=== PATIENT | female | born 1935 | race Caucasian/White ===

== ENCOUNTER → 2019-12-29 | Outpatient (CLI) | payer MEDICARE | END | disposition home or self-care (01) | LOC: LABWHC1 09:57 | PROVIDERS: ATTEND Internal Medicine | DX: U07.1 COVID-19 (principal); Z29.9 Encounter for prophylactic measures, unspecified ==

== ENCOUNTER 2022-11-03 11:44 | Emergency (ER) | payer MEDICARE ==
[2022-11-03] MEDS ORDERED: DIPH,PERTUS(ACELL)TETVAC-LF 0.5 ML VIAL IM ONE (11:59)
[2022-11-03] MEDS ORDERED: TOPICAL SKIN ADHESIVE 1 EACH AMP TOPICAL ONE (12:02)
[2022-11-03] MEDS ORDERED: GELATIN SPONGE,ABSORB (SMALL) 1 EACH SPONGE TOPICAL STA (12:04)
--- NOTE | 2022-11-03 12:07 | ED ---
General Adult HPI - General Chief complaint: Fall Stated complaint: Fall Time Seen by Provider: 11/03/22 11:50 Source: patient, EMS, RN notes reviewed Mode of arrival: EMS Limitations: no limitations - History of Present Illness Initial comments: Patient is a pleasant 87-year-old female presenting to the emergency department following a fall. Patient states she was walking into a building and fell down one step. Patient did strike her head. No loss consciousness. A knott states only mild discomfort. Unclear last tetanus immunization. Patient did have a fall last week. Patient is on eloquent secondary to history of atrial fibrillation. No neck or back pain. No chest pain or dyspnea. No abdominal pain. - Related Data Home Medications Medication Instructions Recorded Confirmed Cephalexin [Keflex] 500 mg PO DAILY 02/15/14 12/29/15 Simvastatin [Zocor] 20 mg PO DAILY 02/15/14 12/29/15 amLODIPine [Norvasc] 5 mg PO DAILY 02/15/14 12/29/15 Aspirin 325 mg PO DAILY 12/19/14 12/29/15 Acetaminophen/Diphenhydramine 2 tab PO HS 12/29/15 12/29/15 [Tylenol PM 500-25mg] Artificial Tears-Hypromellose 1 drop BOTH EYES QID PRN 12/29/15 12/29/15 [Artificial Tear Drops] Calcium Carbonate [Calcium] 600 mg PO DAILY 12/29/15 12/29/15 Vitamin E (Dl,Tocopheryl Acet) 2,000 unit PO DAILY 12/29/15 12/29/15 [Vitamin E] Previous Rx's Medication Instructions Recorded ALPRAZolam [Xanax] 0.25 mg PO TID PRN #20 tab 01/01/16 Furosemide [Lasix] 40 mg PO BID@0900,1600 #60 tab 01/01/16 Levofloxacin [Levaquin] 500 mg PO DAILY #5 tab 01/01/16 Levothyroxine Sodium [Synthroid] 50 mcg PO DAILY@0630 #30 tab 01/01/16 Pregabalin [Lyrica] 150 mg PO HS #20 capsule 01/01/16 Allergies Allergy/AdvReac Type Severity Reaction Status Date / Time No Known Allergies Allergy Verified 11/03/22 11:58 Review of Systems ROS Statement: Those systems with pertinent positive or pertinent negative responses have been documented in the HPI. ROS Other: All systems not noted in ROS Statement are negative. Constitutional: Denies: fever Eyes: Denies: eye pain ENT: Denies: ear pain Respiratory: Denies: cough, dyspnea Cardiovascular: Denies: chest pain Endocrine: Denies: fatigue Gastrointestinal: Denies: abdominal pain Genitourinary: Denies: dysuria Musculoskeletal: Reports: as per HPI. Denies: back pain Skin: Reports: as per HPI. Denies: rash Past Medical History Past Medical History: Eye Disorder, Hyperlipidemia, Hypertension, Myocardial Infarction (HI) Additional Past Medical History / Comment(s): cataracts. tinnitus, Last Myocardial Infarction Date:: 2008 History of Any Multi-Drug Resistant Organisms: None Reported Past Surgical History: Bladder Surgery, Coronary Bypass/CABG, Heart Catheterization, Hysterectomy, Joint Replacement, Tonsillectomy Additional Past Surgical History / Comment(s): triple bypass,. RT MAGGIE. RT TKA. , bladder suspension,. jena fundoplasty,. left eye surgery Past Anesthesia/Blood Transfusion Reactions: No Reported Reaction Past Psychological History: No Psychological Hx Reported Past Alcohol Use History: None Reported Past Drug Use History: None Reported - Past Family History Father Family Medical History: Cancer General Exam Limitations: no limitations General appearance: alert, in no apparent distress Head exam: Present: other (Soft tissue swelling left eyebrow) Eye exam: Present: normal appearance, PERRL. Absent: EOMI (Unable to move left eye laterally which patient states is chronic from muscle weakness and has seen specialists for this and plans for surgery) ENT exam: Present: normal oropharynx Neck exam: Present: normal inspection. Absent: tenderness Respiratory exam: Present: normal lung sounds bilaterally Cardiovascular Exam: Present: irregular rhythm GI/Abdominal exam: Present: soft. Absent: distended, tenderness Extremities exam: Present: tenderness (Tenderness and swelling left dorsal hand and wrist) Back exam: Present: normal inspection. Absent: tenderness Neurological exam: Present: alert, CN II-XII intact (Except difficulty with lateral movement of the left eye) Expanded Neurological exam: Present: protecting the airway Cranial nerves: EOM's Intact: Abnormal Left (With lateral movement) Sensory exam: Upper Extremity Light Touch: Normal, Lower Extremity Light Touch: Normal Motor strength exam: RUE: 5, LUE: 5, RLE: 5, LLE: 5 Eye Response: (4) open spontaneously Motor Response: (6) obeys commands Verbal Response: (5) oriented Psychiatric exam: Present: normal affect, normal mood Skin exam: Present: other (Skin tear left arm and left foot. Laceration right h and between third and fourth MCP) Course - Reevaluation(s) Reevaluation #1: 11/03/22 13:13 Call from radiologist with concern for intracranial hemorrhage. Patient will be transferred. Patient is on eliquis. Kcentra and TX a has been ordered. EKG Findings - EKG Results: EKG: interpreted by GILBERTOD, normal axis, normal QRS, normal ST/T EKG shows: atrial fibrillation Medical Decision Making - Medical Decision Making Was pt. sent in by a medical professional or institution (, PA, PURIFICATION SUPERVISOR, urgent care, hospital, or long term...) When possible be specific @ -No Did you speak to anyone other than the patient for history (EMS, parent, family, police, friend...)? What history was obtained from this source @ -Daughter helps confirm history later that patient has chronic muscle weakness left eye with difficulty with movement Did you review nursing and triage notes (agree or disagree)? Why? @ -I reviewed and agree with nursing and triage notes Were old charts reviewed (outside hosp., previous admission, EMS record, old EKG, old radiological studies, urgent care reports/EKG's, long term records)? Report findings @ -No old charts were reviewed Differential Diagnosis (chest pain, altered mental status, abdominal pain women, abdominal pain men, vaginal bleeding, weakness, fever, dyspnea, syncope, heada joann, dizziness, GI bleed, back pain, seizure, CVA, palpatations, mental health)? @ -not applicable EKG interpreted by me (3pts min.). @ -As above X-rays interpreted by me (1pt min.). @ -Chest x-ray shows no acute process. Pelvis x-ray shows probable old pubic rami fracture. Inferior. X-ray left hand wrist reveals no acute process CT interpreted by me (1pt min.). @ -None done U/S interpreted by me (1pt. min.). @ -None done What testing was considered but not performed or refused? (CT, X-rays, U/S, labs )? Why? @ -None What meds were considered but not given or refused? Why? @ -None Did you discuss the management of the patient with other professionals (professionals i.e. , PA, PURIFICATION SUPERVISOR, lab, RT, psych nurse, social secretary, professor of public administration, teacher, grant officer, rehabilitation case coordinator)? Give summary @ -Case discussed with Dr. Dixon at [facility], who will accept transfer. Was smoking cessation discussed for >3mins.? @ -No Was critical care preformed (if so, how long)? @ -33 minutes critical care time Were there social determinants of health that impacted care today? How? (Homelessness, low income, unemployed, alcoholism, drug addiction, transportation, low edu. Level, literacy, decrease access to med. care, correction, rehab)? @ -No Was there de-escalation of care discussed even if they declined (Discuss DNR or withdrawal of care, Hospice)? DNR status @ -No What co-morbidities impacted this encounter? (DM, HTN, Smoking, COPD, CAD, Cancer, CVA, ARF, Chemo, Hep., AIDS, mental health diagnosis, sleep apnea, morbid obesity)? @ -None Was patient admitted / discharged? Hospital course, mention meds given and route, prescriptions, significant lab abnormalities, going to OR and other pertinent info. @ -Patient has intracranial hemorrhage on anticoagulation secondary to A. fib. Patient provided kcentra and txa. Patient will be transferred to trauma center. Patient and family are updated. Undiagnosed new problem with uncertain prognosis? @ -No Drug Therapy requiring intensive monitoring for toxicity (Heparin, Nitro, Ins ulin, Cardizem)? @ -No Were any procedures done? @ -No Diagnosis/symptom? @ -Intracranial hemorrhage Acute, or Chronic, or Acute on Chronic? @ -Acute Uncomplicated (without systemic symptoms) or Complicated (systemic symptoms)? @ -Complicated with anticoagulation Side effects of treatment? @ -No Exacerbation, Progression, or Severe Exacerbation? @ -No Poses a threat to life or bodily function? How? (Chest pain, USA, HI, pneumonia, PE, COPD, DKA, ARF, appy, cholecystitis, CVA, Diverticulitis, Homicidal, Suicidal, threat to staff... and all critical care pts) @ -Threat to life and neurological function based off hemorrhage - Lab Data Result diagrams: 11/03/22 11:50 11/03/22 11:50 Lab Results 11/03/22 11/03/22 11/03/22 Range/Units 11:50 11:50 11:50 WBC 5.3 (3.8-10.6) k/uL RBC 4.05 (3.80-5.40) m/uL Hgb 12.1 (11.4-16.0) gm/dL Hct 37.3 (34.0-46.0) % MCV 92.0 (80.0-100.0) fL MCH 29.9 (25.0-35.0) pg MCHC 32.5 (31.0-37.0) g/dL RDW 13.6 (11.5-15.5) % Plt Count 204 (150-450) k/uL MPV 8.5 Neutrophils % 67 % Lymphocytes % 21 % Monocytes % 6 % Eosinophils % 2 % Basophils % 0 % Neutrophils # 3.5 (1.3-7.7) k/uL Lymphocytes # 1.1 (1.0-4.8) k/uL Monocytes # 0.3 (0-1.0) k/uL Eosinophils # 0.1 (0-0.7) k/uL Basophils # 0.0 (0-0.2) k/uL PT 10.2 (9.0-12.0) sec INR 1.0 (<1.2) APTT 22.5 (22.0-30.0) sec Sodium 140 (137-145) mmol/L Potassium 3.6 (3.5-5.1) mmol/L Chloride 106 (98-107) mmol/L Carbon Dioxide 29 (22-30) mmol/L Anion Gap 5 mmol/L BUN 22 H (7-17) mg/dL Creatinine 1.47 H (0.52-1.04) mg/dL Est GFR (CKD-EPI)AfAm 36 (>60 ml/min/1.73 sqM) Est GFR (CKD-EPI)NonAf 32 (>60 ml/min/1.73 sqM) Glucose 118 H (74-99) mg/dL Calcium 9.3 (8.4-10.2) mg/dL Total Bilirubin 0.5 (0.2-1.3) mg/dL AST 21 (14-36) U/L ALT 11 (4-34) U/L Alkaline Phosphatase 77 (38-126) U/L Total Protein 6.2 L (6.3-8.2) g/dL Albumin 3.8 (3.5-5.0) g/dL Urine Opiates Screen (NotDetected) Ur Oxycodone Screen (NotDetected) Urine Methadone Screen (NotDetected) Ur Propoxyphene Screen (NotDetected) Ur Barbiturates Screen (NotDetected) U Tricyclic Antidepress (NotDetected) Ur Phencyclidine Scrn (NotDetected) Ur Amphetamines Screen (NotDetected) U Methamphetamines Scrn (NotDetected) U Benzodiazepines Scrn (NotDetected) Urine Cocaine Screen (NotDetected) U Marijuana (THC) Screen (NotDetected) Serum Alcohol <10 mg/dL Blood Type Blood Type Confirm Blood Type Recheck Bld Type Recheck Status Antibody Screen Spec Expiration Date 11/03/22 11/03/22 11/03/22 Range/Units 11:50 12:00 13:45 WBC (3.8-10.6) k/uL RBC (3.80-5.40) m/uL Hgb (11.4-16.0) gm/dL Hct (34.0-46.0) % MCV (80.0-100.0) fL MCH (25.0-35.0) pg MCHC (31.0-37.0) g/dL RDW (11.5-15.5) % Plt Count (150-450) k/uL MPV Neutrophils % % Lymphocytes % % Monocytes % % Eosinophils % % Basophils % % Neutrophils # (1.3-7.7) k/uL Lymphocytes # (1.0-4.8) k/uL Monocytes # (0-1.0) k/uL Eosinophils # (0-0.7) k/uL Basophils # (0-0.2) k/uL PT (9.0-12.0) sec INR (<1.2) APTT (22.0-30.0) sec Sodium (137-145) mmol/L Potassium (3.5-5.1) mmol/L Chloride (98-107) mmol/L Carbon Dioxide (22-30) mmol/L Anion Gap mmol/L BUN (7-17) mg/dL Creatinine (0.52-1.04) mg/dL Est GFR (CKD-EPI)AfAm (>60 ml/min/1.73 sqM) Est GFR (CKD-EPI)NonAf (>60 ml/min/1.73 sqM) Glucose (74-99) mg/dL Calcium (8.4-10.2) mg/dL Total Bilirubin (0.2-1.3) mg/dL AST (14-36) U/L ALT (4-34) U/L Alkaline Phosphatase (38-126) U/L Total Protein (6.3-8.2) g/dL Albumin (3.5-5.0) g/dL Urine Opiates Screen Not Detected (NotDetected) Ur Oxycodone Screen Not Detected (NotDetected) Urine Methadone Screen Not Detected (NotDetected) Ur Propoxyphene Screen Not Detected (NotDetected) Ur Barbiturates Screen Not Detected (NotDetected) U Tricyclic Antidepress Not Detected (NotDetected) Ur Phencyclidine Scrn Not Detected (NotDetected) Ur Amphetamines Screen Not Detected (NotDetected) U Methamphetamines Scrn Not Detected (NotDetected) U Benzodiazepines Scrn Not Detected (NotDetected) Urine Cocaine Screen Not Detected (NotDetected) U Marijuana (THC) Screen Not Detected (NotDetected) Serum Alcohol mg/dL Blood Type O Positive Blood Type Confirm O Positive Blood Type Recheck No Previous Record Bld Type Recheck Status CABO Indicated Antibody Screen NEGATIVE Spec Expiration Date 11/06/2022 - 2349 Critical Care Time Critical Care Time: Yes Total Critical Care Time: 33 Disposition Clinical Impression: Intracranial hemorrhage Disposition: OTHER INSTITUTION NOT DEFINED Condition: Serious Is patient prescribed a controlled substance at d/c from ED?: No Referrals: Myron Zavala MD [Primary Care Provider] - 1-2 days Time of Disposition: 13:19 - Out of Hospital Transfer - Req. Specs Out of Hospital Transfer - Requested Specifics: Other Emergency Center
[2022-11-03 12:14] LABS: Basophils % (A) 0 %; Eosinophils # (A) 0.1 k/uL (0-0.7); Eosinophils % (A) 2 %; HCT 37.3 % (34.0-46.0); HGB 12.1 gm/dL (11.4-16.0); Lymphocytes # (A) 1.1 k/uL (1.0-4.8); Lymphocytes % (A) 21 %; MCH 29.9 pg (25.0-35.0); MCHC 32.5 g/dL (31.0-37.0); Mean Platelet Volume 8.5; Monocytes # (A) 0.3 k/uL (0-1.0); Monocytes % (A) 6 %; Neutrophils # (A) 3.5 k/uL (1.3-7.7); Neutrophils % (A) 67 %; Platelet Count 204 k/uL (150-450); RBC 4.05 m/uL (3.80-5.40); RDW 13.6 % (11.5-15.5); WBC 5.3 k/uL (3.8-10.6)
--- NOTE | 2022-11-03 12:16 | XR ---
EXAMINATION TYPE: XR pelvis AP view DATE OF EXAM: 11/03/2022 CLINICAL HISTORY: pain TECHNIQUE: Single view the pelvis is submitted. FINDINGS: There is sclerosis right inferior pubic ramus could reflect nonacute fracture. No definite acute displaced fracture seen at this time. Correlate clinically point tenderness. Total right hip ar throplasty is noted be in place. Joint spaces are well-preserved. SI joints appear symmetric. IMPRESSION: 1. No acute fracture or dislocation seen. Probable chronic fracture right inferior pubic ramus. ICD 10 NO FRACTURE, INITIAL EVALUATION
--- NOTE | 2022-11-03 12:17 | XR ---
EXAMINATION TYPE: XR chest 1V portable DATE OF EXAM: 11/03/2022 HISTORY: Shortness of breath. COMPARISON: 12/30/2015 TECHNIQUE: Single view of the chest is submitted. Patient rotation limits evaluation. FINDINGS: Demonstrated are scattered senescent parenchymal change. There is no evidence for focal infiltrate. The heart is stable. Hilar and mediastinal structures are within normal limits. Degenerative changes are seen of the dorsal spine. IMPRESSION: 1. Chronic changes without evidence for acute pulmonary disease.
[2022-11-03 12:22] LABS: Partial Thromboplastin Time 22.5 sec (22.0-30.0); Prothrombin Time 10.2 sec (9.0-12.0)
[2022-11-03 12:27] LABS: ALT 11 U/L (4-34); AST 21 U/L (14-36); African American GFR (CKD) 36 (>60 ml/min/1.73 sqM); Albumin 3.8 g/dL (3.5-5.0); Alcohol <10 mg/dL; Alkaline Phosphatase 77 U/L (38-126); Anion Gap 5 mmol/L; Blood Urea Nitrogen 22 mg/dL (7-17); Calcium 9.3 mg/dL (8.4-10.2); Carbon Dioxide 29 mmol/L (22-30); Chloride 106 mmol/L (98-107); Glucose 118 mg/dL (74-99); Non-African American GFR(CKD) 32 (>60 ml/min/1.73 sqM); Potassium 3.6 mmol/L (3.5-5.1); Sodium 140 mmol/L (137-145); Total Bilirubin 0.5 mg/dL (0.2-1.3); Total Protein 6.2 g/dL (6.3-8.2)
--- NOTE | 2022-11-03 12:33 | XR ---
EXAMINATION TYPE: XR hand complete LT DATE OF EXAM: 11/03/2022 CLINICAL HISTORY: pain TECHNIQUE: Frontal, lateral and oblique images of the left hand are obtained. COMPARISON: None. FINDINGS: There is no acute fracture/dislocation evident. The joint spaces appear within normal limi ts. Dorsal soft tissue swelling. Bony osteopenia. Limited evaluation of the proximal phalanx left thi rd digit given overlying ring. IMPRESSION: There is no acute fracture or dislocation. ICD 10 NO FRACTURE, INITIAL EVALUATION
--- NOTE | 2022-11-03 12:51 | CT ---
EXAMINATION TYPE: CT brain roxanne schwartz DATE OF EXAM: 11/03/2022 COMPARISON: None HISTORY: Trauma, fall CT DLP: 1502.[address] of the brain was performed. The ventricles, basal cisterns and sulci overlying the cerebral convexities demonstrate mild enlargem ent. There is a small focus of intraparenchymal contusive hemorrhage left frontal region axial image 33 se quence 2032, sagittal image 35 sequence 2034 and coronal image 04/07/2002 4. Small area of hemorrhage measures 5.7 mm. Additional focus of hyperintensity seen medial left frontal lobe axial image 36 and sagittal image 28 also measuring 5.4 mm. There is decreased attenuation about the periventricular white matter and deep white matter of both c erebral hemispheres, compatible with chronic small vessel ischemia. No mass effects are seen. If symptoms persist consider MRI. Osseous calvarium is intact. Right frontal scalp hematoma and left supraorbital scalp hematoma seen. IMPRESSION: 1. Two small foci of contusive hemorrhage suspected within the left frontal lobe. CT Cervical Spine: Unenhanced CT of the cervical spine was performed with bone and soft tissue window settings submitted . Coronal and sagittal reconstruction is obtained. There is normal alignment and prevertebral soft tissues. No evidence for acute cervical fracture . Scattered degenerative disc disease and spondylosis. Small bilateral pleural effusions with pulmonary venous congestion and scattered groundglass infiltrates.. IMPRESSION: 1. No acute fracture or dislocation. 2. Correlate for changes of congestive failure.
[2022-11-03] MEDS ORDERED: Kcentra PER PHARMACY 1 EACH MISC MISCELLANE PRN (13:03)
[2022-11-03] MEDS ORDERED: TRANEXAMIC 1,000 MG/100ML-NACL 1,000 MG in SALINE 1 100ML.BAG IV STA (13:05)
[2022-11-03] MEDS ORDERED: EMPTY BAG 1 BAG with HUMAN PROTHROMBIN COMPLX 2,000 UNIT IV ONE (13:15)
[2022-11-03 14:35] LABS: Amphetamine Screen,Urine Not Detected (NotDetected); Barbiturate Screen,Urine Not Detected (NotDetected); Benzodiazepines Screen,Urine Not Detected (NotDetected); Cocaine Screen,Urine Not Detected (NotDetected); Methadone Screen, Urine Not Detected (NotDetected); Opiate Screen,Urine Not Detected (NotDetected); Oxycodone Screen, Urine Not Detected (NotDetected); Phencyclidine Screen,Urine Not Detected (NotDetected); Tricyclic Antidepressant,Urine Not Detected (NotDetected); Urn Cannabinoid Scrn Not Detected (NotDetected)
[2022-11-03 21:55] VITALS: BP 163/98; PULSE 86; RESP 17; TEMP 98
== END 2022-11-03 15:30 | disposition other institution (70) ==
LOC: EC 11:44
DX: S00.03XA Contusion of scalp, initial encounter (principal); E78.5 Hyperlipidemia, unspecified; I10 Essential (primary) hypertension; I25.2 Old myocardial infarction; Z79.82 Long term (current) use of aspirin; Z79.899 Other long term (current) drug therapy; Z23 Encounter for immunization; W10.9XXA Fall (on) (from) unspecified stairs and steps, initial encounter; Y93.01 Activity, walking, marching and hiking
CPT/HCPCS: 36415; 93005; 86900; 86901; 80053; 85025; 85610; 85730; 86850; 80306; 72170; 73130; 71045; 72125; 70450; 90715; 99291; 90471; 96365; 96368; G0480; J7168; 80320

== ENCOUNTER 2022-12-15 10:24 | Emergency (ER) | payer MEDICARE ==
[2022-12-15 10:29] VITALS: RESP 18
[2022-12-15 10:50] LABS: Basophils % (A) 1 %; Eosinophils # (A) 0.2 k/uL (0-0.7); Eosinophils % (A) 3 %; HCT 40.4 % (34.0-46.0); Hypochromasia Slight; Lymphocytes # (A) 1.1 k/uL (1.0-4.8); Lymphocytes % (A) 20 %; MCH 29.8 pg (25.0-35.0); MCHC 32.1 g/dL (31.0-37.0); MCV 92.9 fL (80.0-100.0); Mean Platelet Volume 8.6; Monocytes # (A) 0.3 k/uL (0-1.0); Monocytes % (A) 6 %; Neutrophils # (A) 3.9 k/uL (1.3-7.7); Neutrophils % (A) 69 %; Platelet Count 231 k/uL (150-450); RBC 4.35 m/uL (3.80-5.40); RDW 13.9 % (11.5-15.5); WBC 5.7 k/uL (3.8-10.6)
[2022-12-15 11:05] LABS: ALT 11 U/L (4-34); AST 19 U/L (14-36); African American GFR (CKD) 37 (>60 ml/min/1.73 sqM); Albumin 4.1 g/dL (3.5-5.0); Alcohol <10 mg/dL; Alkaline Phosphatase 72 U/L (38-126); Anion Gap 10 mmol/L; Blood Urea Nitrogen 20 mg/dL (7-17); Calcium 9.6 mg/dL (8.4-10.2); Carbon Dioxide 28 mmol/L (22-30); Chloride 103 mmol/L (98-107); Glucose 116 mg/dL (74-99); Non-African American GFR(CKD) 32 (>60 ml/min/1.73 sqM); Potassium 3.4 mmol/L (3.5-5.1); Sodium 141 mmol/L (137-145); Total Bilirubin 0.7 mg/dL (0.2-1.3); Total Protein 6.7 g/dL (6.3-8.2)
[2022-12-15 11:07] LABS: INR 0.9 (<1.2); Partial Thromboplastin Time 22.5 sec (22.0-30.0)
--- NOTE | 2022-12-15 11:34 | ED ---
General Adult HPI - General Chief complaint: Fall Stated complaint: fall Time Seen by Provider: 12/15/22 10:29 Source: patient, EMS Mode of arrival: ambulatory Limitations: no limitations - History of Present Illness Initial comments: This is a 87-year-old female with a past mental history including congestive heart failure, hypertension, hyperlipidemia as as well as atrial fibrillation on Eliquis presents emergency department via EMS after mechanical fall. Is reported the patient was walking across a street when she fell backwards, hitting the back of her head. Initially, the patient denied loss of consciousness but EMS did state that the patient had intermittent amnesia to the events. The patient presents in a c-collar complaining of right elbow pain as well as pain to the back of her head. The patient was able to answer questions appropriately and was ANO 4. The patient denied any other acute pain or complaints at this time. - Related Data Home Medications Medication Instructions Recorded Confirmed Cephalexin [Keflex] 500 mg PO DAILY 02/15/14 12/15/22 Simvastatin [Zocor] 20 mg PO DAILY 02/15/14 12/15/22 Amoxicillin 500 mg PO Q8H 12/15/22 12/15/22 Apixaban [Eliquis] 2.5 mg PO BID 12/15/22 12/15/22 Furosemide [Lasix] 40 mg PO DAILY 12/15/22 12/15/22 Gabapentin 600 mg PO BID 12/15/22 12/15/22 Levothyroxine Sodium [Synthroid] 50 mcg PO DAILY 12/15/22 12/15/22 Metoprolol Tartrate [Lopressor] 50 mg PO DAILY 12/15/22 12/15/22 lisinopriL [Zestril] 5 mg PO DAILY 12/15/22 12/15/22 Allergies Allergy/AdvReac Type Severity Reaction Status Date / Time No Known Allergies Allergy Verified 12/15/22 10:29 Review of Systems ROS Statement: Those systems with pertinent positive or pertinent negative responses have been documented in the HPI. ROS Other: All systems not noted in ROS Statement are negative. Past Medical History Past Medical History: Eye Disorder, Hyperlipidemia, Hypertension, Myocardial Infarction (MT) Additional Past Medical History / Comment(s): cataracts. tinnitus, Last Myocardial Infarction Date:: 2008 History of Any Multi-Drug Resistant Organisms: None Reported Past Surgical History: Bladder Surgery, Coronary Bypass/CABG, Heart Catheterization, Hysterectomy, Joint Replacement, Tonsillectomy Additional Past Surgical History / Comment(s): triple bypass,. RT MAGGIE. RT TKA. , bladder suspension,. jena fundoplasty,. left eye surgery Past Anesthesia/Blood Transfusion Reactions: No Reported Reaction Past Psychological History: No Psychological Hx Reported Smoking Status: Never smoker Past Alcohol Use History: None Reported Past Drug Use History: None Reported - Past Family History Father Family Medical History: Cancer General Exam Limitations: no limitations General appearance: alert, in no apparent distress Head exam: Present: normocephalic, normal inspection, other (Hematoma to the ri ght posterior scalp) Eye exam: Present: normal appearance, PERRL Pupils: Present: normal accommodation ENT exam: Present: normal exam, normal oropharynx Neck exam: Present: normal inspection, other (In C collar) Respiratory exam: Present: normal lung sounds bilaterally Cardiovascular Exam: Present: regular rate, normal rhythm, normal heart sounds GI/Abdominal exam: Present: soft, normal bowel sounds Extremities exam: Present: normal inspection, full ROM, other (TTP over the right elbow with decreased ROM 2/2 pain) Back exam: Present: normal inspection, full ROM Neurological exam: Present: alert, oriented X3, CN II-XII intact Psychiatric exam: Present: normal affect, normal mood Skin exam: Present: warm, dry Course Vital Signs 12/15/22 12/15/22 10:25 14:32 Temperature 97.4 F L 98.1 F Pulse Rate 83 82 Respiratory 18 18 Rate Blood Pressure 141/100 153/91 O2 Sat by Pulse 96 97 Oximetry EKG Findings - EKG Comments: EKG Findings:: An EKG was obtained and was interpreted by myself showing a rate of 80, QRS duration of 97, QTC of 420. This EKG showed an atrial fibrillation with no ST segment elevation or depression noted. This was consistent with the patient's previous history of atrial fibrillation. Procedures - Orthopedic Splinting/Casting Injury #1 Side: right Upper Extremity Injury Location: elbow Upper Extremity Immobilizer: sling/shoulder immobilizer, posterior splint Medical Decision Making - Medical Decision Making Was pt. sent in by a medical professional or institution (, PA, CERTIFIER, urgent care, hospital, or long term...) When possible be specific @ -No Did you speak to anyone other than the patient for history (EMS, parent, family, police, friend...)? What history was obtained from this source @ -No Did you review nursing and triage notes (agree or disagree)? Why? @ -I reviewed and agree with nursing and triage notes Were old charts reviewed (outside hosp., previous admission, EMS record, old EKG, old radiological studies, urgent care reports/EKG's, long term records)? Report findings @ -No old charts were reviewed Differential Diagnosis (chest pain, altered mental status, abdominal pain women, abdominal pain men, vaginal bleeding, weakness, fever, dyspnea, syncope, he adache, dizziness, GI bleed, back pain, seizure, CVA, palpatations, mental health)? @ -Intracranial hemorrhage, right shoulder contusion, right elbow fracture, right elbow contusion. EKG interpreted by me (3pts min.). @ -As above X-rays interpreted by me (1pt min.). @ -Chest x-ray was obtained and was interpreted by myself showing atelectasis or scarring of the left perihilar region otherwise was normal.. Pelvis x-ray and knee x-ray were obtained and were interpreted by myself showing no acute pro cesses or fractures. X-ray of the right elbow showed fracture of the olecranon with intra-articular extension. CT interpreted by me (1pt min.). @ -CT head and CT C-spine were obtained and were interpreted by myself showing no acute intracranial process. There was atrophy noted. There was prior hemorrhage that had resolved. There was also no acute osseous abnormalities the cervical spine. Due to degenerative just disease and mild foraminal narrowing U/S interpreted by me (1pt. min.). @ -None done What testing was considered but not performed or refused? (CT, X-rays, U/S, labs)? Why? @ -None What meds were considered but not given or refused? Why? @ -None Did you discuss the management of the patient with other professionals (professionals i.e. , PA, CERTIFIER, lab, RT, psych nurse, social sciences department chair, denitrator operator, teacher, mounted police officer, director of casework department)? Give summary @ -No Was smoking cessation discussed for >3mins.? @ -No Was critical care preformed (if so, how long)? @ -No Were there social determinants of health that impacted care today? How? (Homelessness, low income, unemployed, alcoholism, drug addiction, transportation, low edu. Level, literacy, decrease access to med. care, [facility], rehab)? @ -No Was there de-escalation of care discussed even if they declined (Discuss DNR or withdrawal of care, Hospice)? DNR status @ -No What co-morbidities impacted this encounter? (DM, HTN, Smoking, COPD, CAD, Cancer, CVA, ARF, Chemo, Hep., AIDS, mental health diagnosis, sleep apnea, morbid obesity)? @ -Atrial fibrillation on Xarelto, hypertension Was patient admitted / discharged? Hospital course, mention meds given and route, prescriptions, significant lab abnormalities, going to OR and other pertinent info. @ -The patient was seen and evaluated emergency department. Physical exam, the patient was resting in bed without any acute distress. The patient was in c-collar. Due to the nature the patient's fall, the patient did have a trauma workup performed as well as imaging. All imaging was negative except for a right elbow fracture. Due to the fracture, the patient did have a posterior mold placed and was given follow-up for orthopedic surgery. The patient othe rwise was resting in bed comfortably with a negative workup. The patient was understanding of the instructions to follow-up with orthopedic surgery and all her questions were answered appropriately. The patient was discharged home in same condition with her son. Undiagnosed new problem with uncertain prognosis? @ -No Drug Therapy requiring intensive monitoring for toxicity (Heparin, Nitro, Insulin, Cardizem)? @ -No Were any procedures done? @ -No Diagnosis/symptom? @ -Fall, right elbow fracture, closed head injury Acute, or Chronic, or Acute on Chronic? @ -Acute Uncomplicated (without systemic symptoms) or Complicated (systemic symptoms)? @ -Uncomplicated Side effects of treatment? @ -No Exacerbation, Progression, or Severe Exacerbation? @ -No Poses a threat to life or bodily function? How? (Chest pain, USA, MT, pneumonia, PE, COPD, DKA, ARF, appy, cholecystitis, CVA, Diverticulitis, Homicidal, Suicidal, threat to staff... and all critical care pts) @ -No - Lab Data Result diagrams: 12/15/22 10:33 12/15/22 10:33 Lab Results 12/15/22 12/15/22 12/15/22 Range/Units 10:33 10:33 10:33 WBC 5.7 (3.8-10.6) k/uL RBC 4.35 (3.80-5.40) m/uL Hgb 13.0 (11.4-16.0) gm/dL Hct 40.4 (34.0-46.0) % MCV 92.9 (80.0-100.0) fL MCH 29.8 (25.0-35.0) pg MCHC 32.1 (31.0-37.0) g/dL RDW 13.9 (11.5-15.5) % Plt Count 231 (150-450) k/uL MPV 8.6 Neutrophils % 69 % Lymphocytes % 20 % Monocytes % 6 % Eosinophils % 3 % Basophils % 1 % Neutrophils # 3.9 (1.3-7.7) k/uL Lymphocytes # 1.1 (1.0-4.8) k/uL Monocytes # 0.3 (0-1.0) k/uL Eosinophils # 0.2 (0-0.7) k/uL Basophils # 0.0 (0-0.2) k/uL Hypochromasia Slight PT 10.0 (9.0-12.0) sec INR 0.9 (<1.2) APTT 22.5 (22.0-30.0) sec Sodium 141 (137-145) mmol/L Potassium 3.4 L (3.5-5.1) mmol/L Chloride 103 (98-107) mmol/L Carbon Dioxide 28 (22-30) mmol/L Anion Gap 10 mmol/L BUN 20 H (7-17) mg/dL Creatinine 1.46 H (0.52-1.04) mg/dL Est GFR (CKD-EPI)AfAm 37 (>60 ml/min/1.73 sqM) Est GFR (CKD-EPI)NonAf 32 (>60 ml/min/1.73 sqM) Glucose 116 H (74-99) mg/dL Calcium 9.6 (8.4-10.2) mg/dL Total Bilirubin 0.7 (0.2-1.3) mg/dL AST 19 (14-36) U/L ALT 11 (4-34) U/L Alkaline Phosphatase 72 (38-126) U/L Troponin I (0.000-0.034) ng/mL Total Protein 6.7 (6.3-8.2) g/dL Albumin 4.1 (3.5-5.0) g/dL Serum Alcohol <10 mg/dL Blood Type Blood Type Recheck Bld Type Recheck Status Antibody Screen Spec Expiration Date 12/15/22 12/15/22 Range/Units 10:33 10:35 WBC (3.8-10.6) k/uL RBC (3.80-5.40) m/uL Hgb (11.4-16.0) gm/dL Hct (34.0-46.0) % MCV (80.0-100.0) fL MCH (25.0-35.0) pg MCHC (31.0-37.0) g/dL RDW (11.5-15.5) % Plt Count (150-450) k/uL MPV Neutrophils % % Lymphocytes % % Monocytes % % Eosinophils % % Basophils % % Neutrophils # (1.3-7.7) k/uL Lymphocytes # (1.0-4.8) k/uL Monocytes # (0-1.0) k/uL Eosinophils # (0-0.7) k/uL Basophils # (0-0.2) k/uL Hypochromasia PT (9.0-12.0) sec INR (<1.2) APTT (22.0-30.0) sec Sodium (137-145) mmol/L Potassium (3.5-5.1) mmol/L Chloride (98-107) mmol/L Carbon Dioxide (22-30) mmol/L Anion Gap mmol/L BUN (7-17) mg/dL Creatinine (0.52-1.04) mg/dL Est GFR (CKD-EPI)AfAm (>60 ml/min/1.73 sqM) Est GFR (CKD-EPI)NonAf (>60 ml/min/1.73 sqM) Glucose (74-99) mg/dL Calcium (8.4-10.2) mg/dL Total Bilirubin (0.2-1.3) mg/dL AST (14-36) U/L ALT (4-34) U/L Alkaline Phosphatase (38-126) U/L Troponin I <0.012 (0.000-0.034) ng/mL Total Protein (6.3-8.2) g/dL Albumin (3.5-5.0) g/dL Serum Alcohol mg/dL Blood Type O Positive Blood Type Recheck O Pos Bld Type Recheck Status No Antibody Screen NEGATIVE Spec Expiration Date 12/18/2022 - 2332 Disposition Clinical Impression: Fall, Hematoma, Elbow fracture, right Disposition: HOME SELF-CARE Condition: Stable Instructions (If sedation given, give patient instructions): Elbow Fracture (DC), Fall Prevention for Older Adults (ED) Is patient prescribed a controlled substance at d/c from ED?: No Referrals: Myron Zavala MD [Primary Care Provider] - 1-2 days Morgan Wilkerson MD [Medical Doctor] - 1-2 days Time of Disposition: 12:30
--- NOTE | 2022-12-15 11:45 | CT ---
EXAMINATION TYPE: CT brain roxanne wo con DATE OF EXAM: 12/15/2022 COMPARISON: 11/03/2022 HISTORY: Fall CT DLP: 1435 mGycm, Automated exposure control for dose reduction was used. CONTRAST: Patient injected with 0 mL of Isovue 300. CT of the brain is performed utilizing 3 mm thick sections through the posterior fossa and 3 mm thick sections through the remaining calvarium. Study is performed within 24 hours of arrival to the hospital. No abnormal hyperdensity is present to suggest an acute intracranial hemorrhage. Previous small left frontal region hemorrhages have resolved. No mass lesion is evident. No acute infarcts are evident. Ventricles and sulci are prominent for the patient age. There is soft tissue swelling over the right right occipital region. No underlying fracture is eviden t. Paranasal sinuses and mastoid air cells within the [id number] are clear. IMPRESSIONS: 1. No acute intracranial process. 2. Atrophy. 3. Prior hemorrhages have resolved. CT cervical spine. COMPARISON: None CT of the cervical spine is performed in the axial plane at 2 mm thick sections. Reconstructed image s in the coronal, and sagittal plane are reviewed on the computer. No acute fractures are evident. Vertebral body alignment is exaggerated lordosis, stable from comparison. Minimal retrolisthesis of C 3 posterior on C4 is present. There is diffuse loss of disc height through the cervical spine Vertebral body heights are preserved. No spinal canal stenosis is evident. Mild foraminal narrowing from uncovertebral joint hypertrophy is present. IMPRESSIONS: 1. No acute osseous abnormality cervical spine. 2. Degenerative disc changes and mild foraminal narrowing discussed above
--- NOTE | 2022-12-15 11:47 | XR ---
EXAMINATION TYPE: XR knee complete RT DATE OF EXAM: 12/15/2022 COMPARISON: None HISTORY: Trauma pain after fall TECHNIQUE: 3 view right knee FINDINGS: Tibial and femoral prosthesis components are present. No acute fracture or dislocation is e vident. No joint effusion is evident. Follow up exams can be performed 7-10 days from acute trauma fo r continued pain. IMPRESSION: 1. No acute osseous abnormality right knee
--- NOTE | 2022-12-15 11:48 | XR ---
EXAMINATION TYPE: XR pelvis AP view DATE OF EXAM: 12/15/2022 COMPARISON: 11/03/2022 HISTORY: Trauma, pain TECHNIQUE: AP pelvis FINDINGS: Symphysis pubis and sacroiliac joints are intact. Right hip prosthesis is noted. No acute f ractures or dislocations evident. Normal bowel gas present. IMPRESSION: 1. No acute osseous abnormality ap Pelvis
--- NOTE | 2022-12-15 11:49 | XR ---
EXAMINATION TYPE: XR elbow complete RT DATE OF EXAM: 12/15/2022 COMPARISON: None HISTORY: Trauma, pain, fall TECHNIQUE: 3 view right elbow FINDINGS: There is a lucent fracture line through the proximal ulna into the articular surface of the olecranon. Fracture line appears nondisplaced Anterior fat pad is mild elevation. Radius aligns normally with the humerus. Soft tissues appear norm al IMPRESSION: 1. Fracture of the olecranon with intra-articular extension
--- NOTE | 2022-12-15 11:50 | XR ---
EXAMINATION TYPE: XR chest 1V portable DATE OF EXAM: 12/15/2022 COMPARISON: 11/03/2022 INDICATION: Trauma pain after fall TECHNIQUE: Single frontal view of the chest is obtained. FINDINGS: The heart size is normal. The pulmonary vasculature is normal. There appears to be some scarring along the left hilar region. Atelectasis could be considered within the differential. There is mild elevation of the left diaphragm. Sternotomy wires are in the midline . IMPRESSION: 1. Atelectasis or scarring left perihilar region
[2022-12-15 14:32] VITALS: BP 153/91; PULSE 82; TEMP 98.1
== END 2022-12-15 14:30 | disposition home or self-care (01) ==
LOC: EC 10:24
DX: S52.021A Displaced fracture of olecranon process without intraarticular extension of right ulna, initial encounter for closed fracture (principal); M43.12 Spondylolisthesis, cervical region; I11.0 Hypertensive heart disease with heart failure; I50.9 Heart failure, unspecified; E78.5 Hyperlipidemia, unspecified; I25.2 Old myocardial infarction; Z79.899 Other long term (current) drug therapy; Z79.01 Long term (current) use of anticoagulants; W19.XXXA Unspecified fall, initial encounter; Y93.01 Activity, walking, marching and hiking
CPT/HCPCS: 36415; 93005; 86900; 86901; 80053; 84484; 85025; 85610; 85730; 86850; 72170; 73080; 73562; 71045; 72125; 70450; 99285; 29105; L3670; G0480; 80320

== ENCOUNTER 2023-11-19 06:18 | Day surgery (SDC) | payer MEDICARE ==
[2023-11-17 14:18] VITALS: BMI 20.5
[~2023-11-19 06:18] MED LIST: LACTATED RINGERS 1,000 ML IV SCH; NEOMYCIN-POLYMYXIN-DEXAMETH OINT 3.5 GM TUBE LEFT EYE PRN
[2023-11-19 06:51] VITALS: TEMP 97.1
[2023-11-19] MEDS: IV FLUID CONTINUATION 1,000 ML IV ONE (06:57)
[2023-11-19] MEDS ORDERED: MIDAZOLAM 2 MG/2 ML VIAL ONE (07:27)
[2023-11-19] MEDS ORDERED: PROPOFOL 10 MG/ML 20 ML VIAL IV ONE (07:27)
[2023-11-19] MEDS: BUPIVACAINE (PF) 0.5% 4.5 ML, HYALURONIDASE, HUMAN RECOMB 150 UNIT, LIDOCAINE 2% (PF) 9... IO PRN (07:35)
[2023-11-19] MEDS: TETRACAINE 0.5% OPHTH (PF) DROPS 4 ML BTL LEFT EYE ONE (08:11)
[2023-11-19] MEDS: NEOMYCIN-POLYMYXIN-DEXAMETH OINT 3.5 GM TUBE LEFT EYE ONE (08:40)
--- NOTE | 2023-11-19 08:46 | P.OP ---
Date of Procedure: 11/19/23 Preoperative Diagnosis: esotropia Postoperative Diagnosis: same Procedure(s) Performed: correction of dehissence Implants: none Anesthesia: MAC Surgeon: Shorty Arndt Pathology: none sent Condition: stable Disposition: same day Indications for Procedure: double vision Operative Findings: no complications
[2023-11-19 09:15] VITALS: BP 145/74; PULSE 74; RESP 20
--- NOTE | 2023-11-20 10:28 | OP ---
OPERATIVE REPORT DATE OF SERVICE : 11/19/2023 PROCEDURE PERFORMED: Strabismus repair of the left eye. PREOPERATIVE DIAGNOSIS: Esotropia of the left eye. POSTOPERATIVE DIAGNOSIS: Dehiscence of previous attachment to the globe and subsequent esotropia of the left eye. ANESTHESIA: Regional with retrobulbar block. ESTIMATED BLOOD LOSS: Less than 5 mL. SPECIMEN TAKEN: None. NARRATIVE: This patient who underwent esotropic correction approximately 8 to 9 years ago of the left eye and in the last 2 years has been appreciating progressive esotropia, which had been stable prior to that time. When last seen in the office, she had demonstrated approximately a 25 to 30 prism diopter deviation of that left eye. Recommendation was to then repair the difficulty noted on her examination and subjective complaints through reexamination of wound and repair of any mechanical difficulties noted during that exam. Therefore, the patient was admitted today to undergo that repair. The patient was brought to the operating room after obtaining the appropriate consent. She was placed in a twilight anesthetic situation using propofol and a retrobulbar anesthetic consisting of 2% lidocaine and 0.5% Marcaine without epinephrine and 100 units of Wydase was injected into the retrobulbar space using an Mccullough needle. A Honan balloon was then placed on the patient's eye and left in place for 10 minutes. The patient was then prepped and draped in the usual sterile manner. She was approached from the 12 o'clock position and forced duction of the eye was able to determine there was no retraction of the medial side of the eye as was originally proposed prior to addressing the signs of esotropia and subjective complaints of double vision. Therefore, an incision on the temporal aspect of the eye in the 5 o'clock position using Jamia scissors. Using sharp and blunt dissection was able to isolate the lateral rectus muscle. The original surgical insertion site was still attached, however, there was separation and thinning of the residual muscle body from its original planned any scar tissue and old attachment point was cleaned up revealing the original insertion of the lateral rectus muscle. Additionally, 5-0 Dacron was used to secure the vascular bundle in the center of the lateral rectus muscle and using standard strabismus technique each upper and lower half of the muscle was then had the 5-0 Decadron woven and then locked on its vertical and inferior edges. Using a cross-sword technique, the 5-0 Decadron was then passed in partial-thickness through the sclera at the correct insertion site and secured to the globe. There was evidence of pull-through of part of the Dacron suture at the superior placement and therefore second 5-0 Dacron was used to recapture the superior edge of the lateral rectus muscle and then again replaced at the intended insertion site. All sutures were trimmed. Any hemostasis required was using a dampened tonsil sponge. There was minimal difficulty with any bleeding during the course of the procedure. The conjunctiva was then reapproximated and closed using 3 interrupted Vicryl sutures, which were all left buried within the tissue. The patient received an inch of Maxitrol ointment and then was shielded and returned to recovery in good condition. There were no complications noted during the course of the procedure. In the recovery area, it was noted however that there was still some oozing of blood as apparently the patient may have taken her Plavix just prior to the procedure and on examination despite the mild ecchymosis appreciated in the lower eyelid, she was sent with some additional gauze sponges and the eye lightly pressure taped on discharge, which was the pressure taping was to be removed at home once she arrived there, which was approximately an hour's drive. MEJIA / JOSÉ MIGUEL: [id number] /
== END 2023-11-19 10:40 | disposition home or self-care (01) ==
LOC: OR 06:18
PROVIDERS: ATTEND Ophthalmology
DX: H50.012 Monocular esotropia, left eye (principal); I10 Essential (primary) hypertension; E78.5 Hyperlipidemia, unspecified; I25.10 Atherosclerotic heart disease of native coronary artery without angina pectoris; I48.91 Unspecified atrial fibrillation; Z79.02 Long term (current) use of antithrombotics/antiplatelets; Z79.82 Long term (current) use of aspirin; Z79.899 Other long term (current) drug therapy
CPT/HCPCS: 12020; J2250; J3470; J2001; J2704; J0665